=== PATIENT | male | born 1945 | race Caucasian/White ===

== ENCOUNTER 2017-04-27 13:42 | Inpatient (IN) | payer MEDICARE, OTHER ==
[~2017-04-27] VITALS: Ht 182.9 cm; Wt 101.6 kg
[2017-04-27 14:00] LABS: BASOPHILS # (AUTO) 0.02 x10^3/uL (0-0.1); BASOPHILS % (AUTO) 1 % (0-1); EOSINOPHILS # (AUTO) 0.12 x10^3/uL (0-0.4); EOSINOPHILS % (AUTO) 2 % (1-7); LYMPHOCYTES # (AUTO) 2.43 x10^3/uL (1-3.4); LYMPHOCYTES % (AUTO) 46 % (22-44); MD NO; MEAN CORPUSCULAR HEMOGLOBIN 32.4 pg (27.5-34.5); MEAN CORPUSCULAR HGB CONC 34.5 g/dL (33.2-36.2); MEAN CORPUSCULAR VOLUME 94.2 fL (81-97); MEAN PLATELET VOLUME 6.4 fL (7.4-10.4); MONOCYTES % (AUTO) 8 % (2-9); NEUTROPHILS # (AUTO) 2.28 x10^3/uL (1.8-6.8); NEUTROPHILS % (AUTO) 43 % (42-75); PLATELET COUNT 198 x10^3/uL (130-400); RED BLOOD COUNT 4.67 x10^6/uL (4.38-5.82); RED CELL DISTRIBUTION WIDTH 12.7 % (9.4-14.8)
[2017-04-27 14:09] LABS: INTERNATIONAL NORMALIZED RATIO 0.98 (0.93-1.1); PROTHROMBIN TIME 10.2 Seconds (9.6-11.5)
[2017-04-27 14:16] LABS: ALANINE AMINOTRANSFERASE 41 U/L (12-78); ALBUMIN 3.9 g/dL (3.4-5.0); ANION GAP 9 mmol/L (5-15); CALCIUM 8.7 mg/dL (8.5-10.1); CHLORIDE 108 mmol/L (98-107); CREATININE 0.85 mg/dL (0.7-1.3)
[2017-04-27 14:18] LABS: ALKALINE PHOSPHATASE 99 U/L (45-117); BILIRUBIN,TOTAL 0.7 mg/dL (0.2-1.0); TOTAL PROTEIN 7.3 g/dL (6.4-8.2)
[2017-04-27] MEDS ORDERED: ALTEPLASE 10 MG in SYRINGE 1 EA IV ONE (14:30)
[2017-04-27] MEDS ORDERED: ALTEPLASE IV ONE (14:30)
[2017-04-27] MEDS ORDERED: ALTEPLASE 1 MG/ML ONE (14:32)
[2017-04-27 14:33] VITALS: BP 165/111
[2017-04-27] MEDS ORDERED: ALTEPLASE 9 MG in SYRINGE 1 EA IV ONE (15:00)
[2017-04-27] MEDS ORDERED: ALTEPLASE 81 MG in VIAL 1 EACH IV ONE (15:00)
[2017-04-27] MEDS ORDERED: POLYETHYLENE GLYCOL 17 GM PACKET PO PRN (15:30)
[2017-04-27] MEDS ORDERED: TEMAZEPAM 15 MG CAPSULE PO PRN (15:30)
[2017-04-27] MEDS ORDERED: ONDANSETRON 2MG/ML, 2ML IVPush PRN (15:30)
[2017-04-27] MEDS ORDERED: LABETALOL 5MG/ML, 20ML IVPush PRN (15:30)
[2017-04-27] MEDS ORDERED: DOCUSATE 100 MG CAPSULE PO PRN (15:30)
[2017-04-27] MEDS ORDERED: ACETAMINOPHEN 325 MG TABLET PO PRN (15:30)
[2017-04-27] MEDS ORDERED: ALLO300T PO (16:25)
[2017-04-27] MEDS ORDERED: PREG300C PO (16:25)
[2017-04-27] MEDS ORDERED: GABA300C10 PO (16:25)
[2017-04-27 16:51] VITALS: BP 147/92
[2017-04-27] MEDS: D5%-0.45NACL+KCL 20MEQ 1,000 ML IV SCH (16:57)
[2017-04-27 16:59] VITALS: BP 140/81
[2017-04-27 17:38] VITALS: BP 147/71
[2017-04-27 18:00] VITALS: BP 155/88
[2017-04-27] MEDS: GABAPENTIN 300 MG CAPSULE PO SCH (21:00)
[2017-04-27] MEDS: PREGABALIN 25 MG CAPSULE PO SCH (21:00)
[2017-04-28] MEDS: D5%-0.45NACL+KCL 20MEQ 1,000 ML IV SCH ×2 (02:42→15:06)
[2017-04-28 04:57] VITALS: BP 130/75
[2017-04-28 04:59] LABS: BASOPHILS # (AUTO) 0.02 x10^3/uL (0-0.1); BASOPHILS % (AUTO) 0 % (0-1); EOSINOPHILS # (AUTO) 0.15 x10^3/uL (0-0.4); EOSINOPHILS % (AUTO) 3 % (1-7); LYMPHOCYTES # (AUTO) 1.91 x10^3/uL (1-3.4); LYMPHOCYTES % (AUTO) 34 % (22-44); MD NO; MEAN CORPUSCULAR HEMOGLOBIN 32.3 pg (27.5-34.5); MEAN CORPUSCULAR HGB CONC 34.1 g/dL (33.2-36.2); MEAN CORPUSCULAR VOLUME 94.8 fL (81-97); MEAN PLATELET VOLUME 6.8 fL (7.4-10.4); MONOCYTES # (AUTO) 0.44 x10^3/uL (0.2-0.8); MONOCYTES % (AUTO) 8 % (2-9); NEUTROPHILS # (AUTO) 3.14 x10^3/uL (1.8-6.8); NEUTROPHILS % (AUTO) 55 % (42-75); PLATELET COUNT 156 x10^3/uL (130-400); RED BLOOD COUNT 4.16 x10^6/uL (4.38-5.82); RED CELL DISTRIBUTION WIDTH 12.6 % (9.4-14.8)
[2017-04-28 05:03] LABS: CHLORIDE 111 mmol/L (98-107)
[2017-04-28 05:11] LABS: ALANINE AMINOTRANSFERASE 26 U/L (12-78); ALBUMIN 3.3 g/dL (3.4-5.0); ALKALINE PHOSPHATASE 74 U/L (45-117); ANION GAP 6 mmol/L (5-15); BILIRUBIN,TOTAL 0.9 mg/dL (0.2-1.0); CALCIUM 7.9 mg/dL (8.5-10.1); CHOL/HDL RATIO 4.4; CHOLESTEROL, TOTAL 189 mg/dL (140-239); CREATININE 0.98 mg/dL (0.7-1.3); HDL CHOL % 23 % (26-37); HDL CHOLESTEROL (DIRECT) 43 mg/dL (40-60); LDL CHOLESTEROL,CALCULATED 85 mg/dL (54-169); TOTAL PROTEIN 6.1 g/dL (6.4-8.2); TRIGLYCERIDES 304 mg/dL (50-200); VLDL CHOLESTEROL 61 mg/dL (0-25)
[2017-04-28] MEDS: CYANOCOBALAMIN 1,000 MCG TABLET PO SCH (09:38)
[2017-04-28] MEDS: GABAPENTIN 300 MG CAPSULE PO SCH ×2 (09:38→22:57)
[2017-04-28] MEDS: PREGABALIN 25 MG CAPSULE PO SCH ×2 (09:38→22:57)
[2017-04-28] MEDS: THIAMINE 100MG TABLET PO SCH (09:38)
[2017-04-28] MEDS: OMEPRAZOLE 20 MG CAPSULE.DR PO SCH (09:38)
[2017-04-28] MEDS: FOLIC ACID 1 MG TABLET PO SCH (09:38)
[2017-04-28] MEDS: ALLOPURINOL 100 MG TABLET PO SCH (09:38)
[2017-04-28] MEDS ORDERED: ATORVASTATIN 80 MG TABLET PO SCH (21:00)
[2017-04-28 22:45] VITALS: BP 168/71
[2017-04-28] MEDS ORDERED: ASPIRIN 81 MG TABLET EC PO SCH (23:00)
[2017-04-29 02:58] VITALS: BP 147/79
[2017-04-29 05:35] LABS: BASOPHILS # (AUTO) 0.02 x10^3/uL (0-0.1); BASOPHILS % (AUTO) 0 % (0-1); EOSINOPHILS # (AUTO) 0.18 x10^3/uL (0-0.4); EOSINOPHILS % (AUTO) 4 % (1-7); LYMPHOCYTES # (AUTO) 1.89 x10^3/uL (1-3.4); LYMPHOCYTES % (AUTO) 39 % (22-44); MD NO; MEAN CORPUSCULAR HEMOGLOBIN 32.8 pg (27.5-34.5); MEAN CORPUSCULAR HGB CONC 34.3 g/dL (33.2-36.2); MEAN CORPUSCULAR VOLUME 95.6 fL (81-97); MEAN PLATELET VOLUME 6.5 fL (7.4-10.4); MONOCYTES # (AUTO) 0.42 x10^3/uL (0.2-0.8); MONOCYTES % (AUTO) 9 % (2-9); NEUTROPHILS # (AUTO) 2.36 x10^3/uL (1.8-6.8); NEUTROPHILS % (AUTO) 49 % (42-75); PLATELET COUNT 162 x10^3/uL (130-400); RED BLOOD COUNT 4.19 x10^6/uL (4.38-5.82); RED CELL DISTRIBUTION WIDTH 12.7 % (9.4-14.8)
[2017-04-29 05:46] LABS: ALBUMIN 3.4 g/dL (3.4-5.0); ANION GAP 6 mmol/L (5-15); CALCIUM 8.3 mg/dL (8.5-10.1); CHLORIDE 111 mmol/L (98-107)
[2017-04-29 05:50] LABS: ALANINE AMINOTRANSFERASE 29 U/L (12-78); ALKALINE PHOSPHATASE 71 U/L (45-117); BILIRUBIN,TOTAL 1.4 mg/dL (0.2-1.0); TOTAL PROTEIN 6.3 g/dL (6.4-8.2)
[2017-04-29] MEDS: FOLIC ACID 1 MG TABLET PO SCH (08:52)
[2017-04-29] MEDS: OMEPRAZOLE 20 MG CAPSULE.DR PO SCH (08:53)
[2017-04-29] MEDS: CYANOCOBALAMIN 1,000 MCG TABLET PO SCH (08:53)
[2017-04-29] MEDS: ALLOPURINOL 100 MG TABLET PO SCH (08:53)
[2017-04-29] MEDS: PREGABALIN 25 MG CAPSULE PO SCH (08:53)
[2017-04-29 08:56] VITALS: BP 145/84
[2017-04-29] MEDS ORDERED: LISINOPRIL 10 MG TABLET PO SCH (10:00)
[2017-04-29 13:23] VITALS: BP 162/85
[2017-04-29] MEDS ORDERED: ATOR-2 PO (13:41)
[2017-04-29] MEDS ORDERED: MULT-412 PO (13:41)
[2017-04-29] MEDS ORDERED: LISI-167 PO (13:41)
[2017-04-29] MEDS ORDERED: ASPI-621 PO (13:41)
[2017-04-29] MEDS: GABAPENTIN 300 MG CAPSULE PO SCH (14:58)
[2017-04-29] MEDS: THIAMINE 100MG TABLET PO SCH (14:58)
== END 2017-04-29 16:25 | disposition home or self-care (01) | DRG 62 ==
LOC: ED 15:09 → EDIP 15:50 → CCU 16:08 → 5SO 04-28 19:27 → DCLOUNGE 04-29 16:09
PROVIDERS: ADMIT Internal Medicine; ATTEND Internal Medicine
DX: I63.9 Cerebral infarction, unspecified (principal); G81.93 Hemiplegia, unspecified affecting right nondominant side; G62.9 Polyneuropathy, unspecified; I10 Essential (primary) hypertension; K21.9 Gastro-esophageal reflux disease without esophagitis; E66.9 Obesity, unspecified; E78.5 Hyperlipidemia, unspecified; F10.10 Alcohol abuse, uncomplicated; F40.240 Claustrophobia; I65.23 Occlusion and stenosis of bilateral carotid arteries; M10.9 Gout, unspecified; R29.810 Facial weakness; R47.81 Slurred speech; R47.02 Dysphasia; Z53.20 Procedure and treatment not carried out because of patient's decision for unspecified reasons; Z68.33 Body mass index [BMI] 33.0-33.9, adult; Z79.82 Long term (current) use of aspirin
CPT/HCPCS: 36415; 70450; 80047; 80053; 80061; 82962; 83735; 84443; 85025; 85520; 85610; 85730; 87081; 93005; 93306; 93880; J2997; 92523-GN; J3480